=== PATIENT | female | born 1995 | race American Indian/Alaskan Native ===

== ENCOUNTER 2018-02-04 07:30 | Inpatient (IN) | payer MEDICAID ==
--- NOTE | 2018-02-04 17:14 | History and Physical Report ---
History of Present Illness Date of examination: 02/01/18 Date of admission: 02/05/18 Chief complaint: c/s with btl History of present illness: Pt here for scheduled repeat c/s with btl. She has had 3 previous c/s and this will be the fourth. All risk,benefits,and alternatives were d/w pt and questions were addressed and answered. Consents were signed and placed on the chart. EDC Confirmation: 02/08/2018 Gestational Age: 19 3/7 weeks Past History : 4 Term Births: 3 Premature Births: 0 Living Children: 3 Para: 3 Mult. Births: 0 Prev : 3 Prev. attempt? none Aborta: 0 Elect. Ab: 0 Spont. Ab: 0 Ectopics: 0 # 1 Delivery date: 10/06/2011 Weeks Gestation: 39 labor: no Delivery type: Hours of labor: ? Anesthesia type: epidural Delivery location: [facility] Sex: Female weight: 6-14 Name: Adriana Comments: Failure of dilatation? # 2 Delivery date: 05/15/2013 Weeks Gestation: 39 labor: no Delivery type: Anesthesia type: spinal Delivery location: [facility] Sex: Female weight: 9-8 Name: Blossom Comments: Scheduled # 3 Delivery date: 12/14/2015 Weeks Gestation: 39 Delivery type: Anesthesia type: spinal Delivery location: [facility] Sex: Female weight: 7-8 Name: Francisca Comments: Scheduled Past Medical History: Negative Past Medical History Past Surgical History: (2011) (2013) (2015) Family History Summary: Other family member - Has No Family History of Ovarvian Cancer - Entered On: 02/2018 Other family member - Has No Family History of Colon Cancer - Entered On: 2017 Other family member - Has No Family History of Breast Cancer - Entered On: 2017 Social History: Marital Status: Children: Occupation: Unemployed Patient is single Risk Factors: Smoked Tobacco Use: Never smoker Drug use: no HIV high-risk behavior: low risk Alcohol use: no Dietary Counseling: pn yes Past Medical History 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 of genital herpes: no Genetic History Congenital Heart Defect: Mom: no Dad: no Toshia Disease: Mom: no Dad: no Thalassemia Mom: no Dad: no Neural Tube Defect Mom: no Dad: no Down's Syndrome Mom: no Dad: no Ghulam-Sachs Mom: no Dad: no Sickle Cell Disease/Trait Mom: no Dad: no Hemophilia Mom: no Dad: no Muscular Dystrophy Mom: no Dad: no Cystic Fibrosis Mom: no Dad: no [place] Chorea Mom: no Dad: no Mental Retardation Mom: no Dad: no Fragile X Mom: no Dad: no Other Genetic/Chromosomal Disorder Mom: no Dad: no Child w/other defect Mom: no Dad: no Active Medications (reviewed today): None Current Allergies (reviewed today): No known allergies Past History Past Medical History: no pertinent history Past Surgical History: 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 Negative: distention, tenderness, guarding Genitourinary (Female): Positive: normal external genitalia, normal perenium Vagina: Positive: normal moisture Extremities: Positive: normal, edema (trace b/l). Negative: tenderness - Obstetrical FHR: auscultation normal Results All other labs normal. Assessment and Plan - Patient Problems (1) 39 weeks gestation of Status: Acute Plan to address problem: -admit and prepare for c/s -consents signed and placed on the chart. (2) Encounter for sterilization Status: Acute
[2018-02-04] MEDS ORDERED: PITOCin/NS 20 UNIT/1000ML DRIP 20 UNITS/1,000 ML BAG IV SCH (18:00)
[2018-02-05] MEDS ORDERED: ANCEF/STERILE WATER 2 GM/20 ML 2 GM/20 ML SYRINGE IV NR (05:00)
[2018-02-05] MEDS ORDERED: REGLAN IV NR (05:00)
[2018-02-05] MEDS ORDERED: BICITRA PO ONE (05:00)
[2018-02-05] MEDS ORDERED: EMLA TP PRN (05:00)
[2018-02-05] MEDS ORDERED: PEPCID IV NR (05:00)
[2018-02-05] MEDS: LACTATED RINGERS 1,000 ML IV SCH ×2 (10:20→11:13)
[2018-02-05] MEDS ORDERED: LACTATED RINGERS 2,000 ML ONE (10:31)
[2018-02-05 10:51] LABS: Basophils % (Auto) 0.4 % (0.0-1.8); Eosinophils # (Auto) 0.1 K/mm3 (0.0-0.4); Eosinophils % (Auto) 1.2 % (0.0-4.3); Hematocrit 23.8 % (30.3-42.9); Hemoglobin 7.4 gm/dl (10.1-14.3); Lymphocytes # (Auto) 2.1 K/mm3 (1.2-5.4); Lymphocytes % (Auto) 23.1 % (13.4-35.0); Mean Corpuscular HGB Conc 31 % (30-34); Mean Corpuscular Hemoglobin 19 pg (28-32); Mean Corpuscular Volume 60 fl (79-97); Monocytes # (Auto) 0.6 K/mm3 (0.0-0.8); Platelet Count 323 K/mm3 (140-440); Red Blood Count 3.96 M/mm3 (3.65-5.03)
[2018-02-05 10:52] LABS: Red Cell Distribution Width 21.2 % (13.2-15.2)
[2018-02-05] MEDS ORDERED: NACL 0.9% 500 ML 500 ML IV ONE ×2 (10:53→21:50)
[2018-02-05] MEDS ORDERED: REGLAN ONE (11:00)
[2018-02-05] MEDS ORDERED: LACTATED RINGERS 1,000 ML ONE (11:00)
[2018-02-05] MEDS ORDERED: BICITRA ONE (11:00)
[2018-02-05] MEDS ORDERED: ANCEF/STERILE WATER 2 GM/20 ML 2 GM/20 ML SYRINGE IV ONE (11:01)
[2018-02-05] MEDS ORDERED: PEPCID IV ONE (11:01)
[2018-02-05] MEDS ORDERED: PITOCin/NS 20 UNIT/1000ML DRIP 20,000 MILLIUNITS/1,000 ML BAG IV ONE (11:01)
[2018-02-05] MEDS ORDERED: NARCAN 0.4 MG/1 ML IV PRN ×2 (11:19→14:00)
[2018-02-05] MEDS ORDERED: PHENERGAN PO PRN (11:19)
[2018-02-05] MEDS ORDERED: ZOFRAN IV PRN (11:19)
[2018-02-05] MEDS ORDERED: PHENERGAN PR PRN (11:19)
[2018-02-05] MEDS ORDERED: DILAUDID IV PRN ×2 (11:19)
--- NOTE | 2018-02-05 11:19 | Anesthesia Consultation ---
Anesthesia Consult and Med Hx Date of service: 02/05/18 - Airway Anesthetic Teeth Evaluation: Good ROM Head & Neck: Adequate Mental/Hyoid Distance: Adequate Mallampati Class: Class II Intubation Access Assessment: Good - Pulmonary Exam CTA: Yes - Cardiac Exam Cardiac Exam: No Murmur - Pre-Operative Health Status ASA Pre-Surgery Classification: ASA2 Proposed Anesthetic Plan: Epidural - Pulmonary Hx Asthma: No COPD: No Hx Pneumonia: No - Cardiovascular System Hx Hypertension: No - Central Nervous System Hx Seizures: No Hx Psychiatric Problems: No - Endocrine Hx Renal Disease: No Hx End Stage Renal Disease: No Hx Hypothyroidism: No Hx Hyperthyroidism: No - Hematic Hx Anemia: No Hx Sickle Cell Disease: No - Other Systems Hx Alcohol Use: No
--- NOTE | 2018-02-05 11:19 | Anesthesia Day of Surgery ---
Anesthesia Day of Surgery - Day of Surgery Patient Examined: Yes Patient H&P Reviewed: Yes Patient is NPO: Yes
[2018-02-05] MEDS ORDERED: MORPHINE ONE (11:26)
[2018-02-05] MEDS ORDERED: NACL 0.9% IR ONE (11:50)
[2018-02-05] MEDS ORDERED: WATER FOR IRRIG STERILE IR ONE (11:50)
[2018-02-05] MEDS ORDERED: TORADOL ONE (11:55)
[2018-02-05] MEDS ORDERED: SODIUM CHLORIDE FLUSH SYRINGE 10 ML IV NR (12:00)
--- NOTE | 2018-02-05 13:25 | Operative Report ---
Operative Report Operative Report: Date of procedure: 02/05/2018 Pre-operative diagnosis: 39 weeks gestation Previous section 3 Desires permanent sterilization Post-operative diagnosis: Same Procedure name(s): Repeat classical section via Pfannenstiel skin incision Bilateral tubal ligation via modified Cecil method Surgeon: Dr. Zhang Utility Mechanic: Ms. Bridgett Curry [employer]ORER/DESIGNER Anesthesia: Combined spinal epidural EBL: 800 mL Urine output: 50 mL of clear urine out at the end of procedure Fluids: 1500 mL Findings: Liveborn female infanta weight 9lbs 10 oz apgars of 8 and 9 at one and five minutes dense adhesions of the uterus to ant abdominal wall. Indications: Patient presents for scheduled repeat c section with BTL. All risk , benefits, and alternatives were d/w pt and questions were addressed and answered. Consents were signed and placed on the chart. Procedure: Patient was taking to the operating room. Patient was then prepped and draped in sterile fashion after anesthesia was found to be adequate. A low transverse skin incision was made with the scalpel through previous incisional scar and carried down to the underlying layer of fascia with the Bovie. The fascia was then incised in the midline and this incision was extended bilaterally with the Bovie. The superior aspect of the fascia was grasped with Sarah clamps tented upward and dissected off of the anterior rectus muscles with the scalpel. In similar fashion the inferior aspect of the fascia was grasped with Sarah clamps tented upward and dissected off of the anterior rectus muscles. The rectus muscles were adherent to the uterus and only the uterus was seen after the fascia was dissected off. There was not clear plane between the uterus and the muscle. The lateral aspects of the lower uterine segment were not clearly seen due to adhesions. It is for this reason that a low vertical incision was made and extended upward with blunt dissection. Artificial rupture of membranes was performed yielding clear amniotic fluid. The infant's head was then delivered atraumatically. The anterior shoulder and rest of delivered without difficulty. The umbilical cord was clamped x2. The cord was cut. The was then placed in sterile bassinet. The placenta was manually extracted in its entirety. The adhesions of the uterus to the rectus muscle were removed. The uterus was exteriorized and cleared of all clots and debris. The uterine incision was closed using 0 Vicryl in a running locking fashion. Figure of eight stitches were used along the incision and excellent hemostasis was noted. Attention was then turned to the fallopian tubes. A portion of the left tube was grasped with the simi clamp, sucture ligated x 2 and cut and segment handed off for pathology. Excellent hemostasis was noted. This was repeated on the right side. The posterior cul-de-sac was copiously irrigated. The uterus was returned to the abdomen. The gutters were also irrigated. Tissel was placed along the incision as well as interceed. The anterior rectus muscles were reapproximated using 3-0 Vicryl. The anterior rectus fascia was reapproximated using 0 Vicryl in a running fashion. The subcuticular fat was reapproximated using 2-0 Vicryl in a running fashion. The skin was reapproximated with 4-0 monocryl with sub q stitch. The patient tolerated the procedure well. Sponge lap and needle counts were all correct x3. Patient was taken to the recovery room awake and in stable condition.
[2018-02-05] MEDS ORDERED: D5LR 1,000 ML IV SCH (14:00)
[2018-02-05] MEDS ORDERED: TORADOL IV PRN (14:00)
[2018-02-05] MEDS ORDERED: LANSINOH TP PRN (14:00)
[2018-02-05] MEDS ORDERED: TUCKS PAD TP PRN (14:00)
[2018-02-05] MEDS: BENADRYL IV PRN ×2 (14:00→21:49)
[2018-02-05] MEDS ORDERED: NORCO 5/325 PO PRN (14:00)
--- NOTE | 2018-02-05 14:23 | Event Note ---
Date: 02/05/18 Called by WILI Mathur. Pt noted to have swelling of the eyelids and c/o itching once transfusion was half done with 1st unit. No SOB or difficulty swallowing. Pt did not get benedryl prior to xfusion but had gotten at time of md arrival at bedside. Pt resting in no acute distress and was noted to have no swelling of eyelids or hives that could be seen. She did have scratch raman from her scratching. She was also noted to be having some emesis or dry heaving. Otherwise she is stable. Will repeat h/h in 2hrs and then re-evalute need to con 't xfusion. Will hold at this time.
[2018-02-05 15:53] LABS: Hematocrit 21.7 % (30.3-42.9); Hemoglobin 6.6 gm/dl (10.1-14.3)
--- NOTE | 2018-02-05 17:34 | Event Note ---
Date: 02/05/18 h/h 6.6. At this time I will hold the blood at this time and repeat h/h at 9pm. Pt c/o itching so will given nubain at this time and con't to closely monitor.
[2018-02-05] MEDS ORDERED: NUBAIN ONE (18:01)
[2018-02-05] MEDS ORDERED: LACTATED RINGERS 500 ML IV ONE (18:10)
[2018-02-05] MEDS ORDERED: NUBAIN IV ONE (18:39)
[2018-02-05 20:32] LABS: Hematocrit 18.7 % (30.3-42.9); Hemoglobin 5.8 gm/dl (10.1-14.3)
--- NOTE | 2018-02-05 21:28 | Event Note ---
Date: 02/05/18 Provider at bedside. Pt is easily awakened and is alert and oriented times 4. Pt advised of critical value of 5.8 hgb and need to try to transfuse. She states she is feeling well. No sob or chest pain. She still c/o some itching but it improved with the nubain. I d/w that due to her low pulse we would hold off on additional pain meds other than her epidural that was not an NSAID. Pt expressed understanding. She agrees to the unit of blood. I spoke with WILI Hooper and made her aware of order to xfuse and repeat h/h 2hrs later. All quetions again were addressed and answered.
[2018-02-05] MEDS: ANCEF/NS 1 GM/50 ML 1 GM/50 ML BAG IV SCH (22:00)
[2018-02-06 04:27] LABS: Hematocrit 21.7 % (30.3-42.9); Hemoglobin 6.9 gm/dl (10.1-14.3)
[2018-02-06] MEDS ORDERED: BOOSTRIX IM ONE (06:00)
[2018-02-06] MEDS: ANCEF/NS 1 GM/50 ML 1 GM/50 ML BAG IV SCH (06:07)
[2018-02-06] MEDS ORDERED: NACL 0.9% 500 ML 500 ML IV ONE (06:28)
[2018-02-06] MEDS: BENADRYL IV PRN ×2 (07:13→20:07)
[2018-02-06] MEDS ORDERED: FEOSOL PO SCH (10:00)
--- NOTE | 2018-02-06 11:35 | Progress Note ---
Assessment and Plan - Patient Problems (1) delivery delivered Current Visit: Yes Status: Acute Plan to address problem: Continue c/s pathway (2) Anemia Current Visit: Yes Status: Chronic Qualifiers: Other causes of anemia: acute posthemorrhagic Plan to address problem: asymptomatic s/p 3uPRBC's H/H pending start Iron po (3) Encounter for sterilization Current Visit: No Status: Acute Subjective - Subjective Date of service: 02/06/18 Principal diagnosis: POD#1 s/p C/S w/ BTL, chronic anemia Patient reports: pain well controlled, ambulating normally Objective - Vital Signs Latest vital signs: Vital Signs Temp Pulse Resp BP BP Pulse Ox 02/06/18 01:12 98.1 F 84 20 119/74 02/06/18 00:45 98.4 F 71 20 104/60 02/06/18 00:15 98.6 F 69 18 109/67 02/05/18 23:45 98.6 F 71 18 102/59 97 02/05/18 23:43 98.6 F 71 102/59 97 02/05/18 23:42 61 20 102/59 97 02/05/18 23:15 98.6 F 67 18 96/55 02/05/18 23:00 98.7 F 61 18 96/64 02/05/18 21:25 98.0 F 63 18 101/57 02/05/18 16:20 97.5 F L 53 L 16 95/42 02/05/18 14:50 97.5 F L 52 L 16 100/51 97 02/05/18 14:15 97.6 F 55 L 18 107/60 99 02/05/18 14:00 57 L 14 111/71 100 02/05/18 13:45 50 L 14 133/61 100 02/05/18 13:30 59 L 20 111/65 99 02/05/18 13:10 57 L 16 110/69 100 02/05/18 13:00 96.0 F L 56 L 16 106/69 100 02/05/18 12:55 60 15 109/73 100 02/05/18 12:51 88 14 114/62 98 Intake and Output 02/05/18 02/06/18 02/06/18 22:59 06:59 14:59 Intake Total 530 490 Output Total 300 100 Balance 230 390 Intake: IV 50 ANCEF/NS 1 GM/50 ML 1 gm 50 In 50 ml @ 100 mls/hr IV Q8H [facility] Rx#:[id number] Oral 480 240 Blood Product 250 Leukoreduced Red Blood 250 Cells Unit [id number] Output: Urine 300 100 Indwelling Catheter 300 100 Other: Total, Intake Amount 480 240 Total, Output Amount 200 100 - Exam Narrative Exam: Standing in bathroom, denies complaints - Labs Labs: Abnormal lab results 02/05/18 02/05/18 02/05/18 Range/Units 10:40 15:33 19:57 Hgb 6.6 L 5.8 L* (10.1-14.3) gm/dl Hct 21.7 L 18.7 L* (30.3-42.9) % Crossmatch See Detail 02/06/18 Range/Units 04:11 Hgb 6.9 L (10.1-14.3) gm/dl Hct 21.7 L (30.3-42.9) % Crossmatch
[2018-02-06 12:10] LABS: Hematocrit 24.8 % (30.3-42.9); Hemoglobin 7.8 gm/dl (10.1-14.3)
[2018-02-06] MEDS: FEOSOL PO SCH ×2 (14:41→20:07)
[2018-02-07] MEDS: MOTRIN PO PRN ×2 (06:51→18:22)
[2018-02-07] MEDS: FEOSOL PO SCH (11:20)
--- NOTE | 2018-02-07 11:59 | Progress Note ---
Assessment and Plan POD#2, doing well, will observe today d/t severe anemia s/p transfusion of 3uPRBC's - Patient Problems (1) delivery delivered Current Visit: Yes Status: Acute Plan to address problem: Continue post C/S pathway (2) Anemia Current Visit: Yes Status: Chronic Qualifiers: Other causes of anemia: acute posthemorrhagic Plan to address problem: FeSO4 has been out of stock according to pharmacy Asymptomatic Observe today, ? d/c home tomorrow (3) Encounter for sterilization Current Visit: No Status: Acute Subjective - Subjective Date of service: 02/07/18 Principal diagnosis: POD#2 s/p C/S w/ BTL, chronic anemia Patient reports: appetite normal, voiding normally, pain well controlled, flatus Objective - Vital Signs Latest vital signs: Vital Signs Temp Pulse Resp BP 02/07/18 08:13 98.4 F 64 18 128/68 02/07/18 00:35 97.9 F 71 20 126/72 02/06/18 16:32 98.6 F 67 18 117/56 Intake and Output 02/06/18 02/07/18 02/07/18 22:59 06:59 14:59 Intake Total 480 240 Output Total 2 Balance 480 -2 240 Intake: Oral 240 240 Intake, Free Water 240 Output: Urine 2 Void 2 Other: Total, Intake Amount 240 240 Total, Output Amount 2 # Voids Indwelling Catheter 1 Void 2 - Exam Breasts: Present: deferred Cardiovascular: Present: Regular rate Lungs: Present: Clear to auscultation, Normal air movement Abdomen: Present: normal appearance, soft, normal bowel sounds. Absent: tenderness, guarding Uterus: Present: fundal height below umbilicus. Absent: tenderness Extremities: Present: edema (1+) Deep Tendon Reflex Grade: Normal +2 Incision: Present: normal, dry, intact - Labs Labs: Abnormal lab results 02/05/18 02/06/18 Range/Units 10:40 11:27 Hgb 7.8 L (10.1-14.3) gm/dl Hct 24.8 L (30.3-42.9) % Crossmatch See Detail
[2018-02-07] MEDS: FERROUS SULFATE PO SCH ×2 (14:30→20:25)
--- NOTE | 2018-02-08 05:47 | Discharge Summary ---
Providers - Providers Date of Admission: 02/05/18 09:45 Date of discharge: 02/08/18 (pt request d/c) Attending physician: STEFANO GOMEZ Primary care physician: STEFANO GOMEZ Hospitalization Reason for admission: section Procedure: bilateral tubal ligation, repeat low transverse Episiotomy: none Laceration: none Incision: normal, dry, intact complications: transfusion (3 units PRC transfused) Discharge diagnosis: IUP at term delivered [place] baby: female Hospital course: uncomplicated repeat section with tubal ligation pt transfused 3 units PRC Pt sleeping VSS FF below umb Lochia scant Incision D&I H&H 12/01 post- transfusion No s/sx of anemia Doing well s/p c/s P: d/c today with instructions RTO 1 week. RX provided @ d/c. Will consult with Condition at discharge: Good Disposition: - TO HOME OR SELFCARE - Discharge Diagnoses (1) delivery delivered Status: Acute Comment: RTO 1 week postop care (2) Anemia Status: Chronic Qualifiers: Other causes of anemia: acute posthemorrhagic Comment: RX po iron @ d/c Encouraged iron rich foods Continue PNV QD Plan - Discharge Medications Prescriptions: Docusate Sodium [Colace] 100 mg PO BID PRN #60 capsule PRN Reason: Constipation Ferrous Sulfate [Feosol 325 MG tab] 325 mg PO TID #90 tablet Ibuprofen 800 mg PO Q6HR #30 tablet oxyCODONE /ACETAMINOPHEN [Percocet 5/325] 1 tab PO Q4HR #30 tab - Provider Discharge Summary Activity: routine, no sex for 6 weeks, no heavy lifting 4 weeks, no strenuous exercise Diet: other (increase iron rich foods in diet) Instructions: routine Additional instructions: [] Smoking cessation referral if applicable(refer to patient education folder for contact #) [] Refer to [facility] Booklet Call your doctor immediately for: * Fever > 100.5 * Heavy vaginal bleeding ( >1 pad per hour) * Severe persistent headache * Shortness of breath * Reddened, hot, painful area to leg or breast * Drainage or odor from incision. * Keep incision clean and dry at all times and follow doctor's instructions regarding bathing/showering - Follow up plan Follow up: STEFANO GOMEZ MD [Primary Care Provider] - 7 Days (Keep scheduled postoperative visit. Take medications as prescribed. Call [phone] with any concerns. )
[2018-02-08] MEDS: MOTRIN PO PRN (08:03)
[2018-02-08] MEDS: FERROUS SULFATE PO SCH (08:04)
[2018-02-08 15:10] VITALS: BP 129/77
== END 2018-02-08 13:20 | disposition home or self-care (01) | DRG 765 ==
LOC: APU 02-05 09:45 → OB 02-05 15:07
PROVIDERS: ADMIT Obstetrics & Gynecology; ATTEND Obstetrics & Gynecology
PROC: 10D00Z1 Extraction of Products of Conception, Low, Open Approach (ICD-10-PCS; principal; 2018-02-05)
PROC: 0UB70ZZ Excision of Bilateral Fallopian Tubes, Open Approach (ICD-10-PCS; 2018-02-05)
PROC: 30233N1 Transfusion of Nonautologous Red Blood Cells into Peripheral Vein, Percutaneous Approach (ICD-10-PCS; 2018-02-05)
PROC: 3E0234Z Introduction of Serum, Toxoid and Vaccine into Muscle, Percutaneous Approach (ICD-10-PCS; 2018-02-06)
DX: O34.211 Maternal care for low transverse scar from previous cesarean delivery (principal); D62 Acute posthemorrhagic anemia; Z3A.39 39 weeks gestation of pregnancy; Z37.0 Single live birth; Z30.2 Encounter for sterilization; O99.02 Anemia complicating childbirth; Z23 Encounter for immunization
CPT/HCPCS: 36415; 85014; 85018; 85025; 86850; 86900; 86901; 86920; 88302; 88720; C1765; C9250; J0690; J1200; J1885; J2270; J2300; J2405; J2590; J2765; J7040; J7120; P9016